=== PATIENT | male | born 1980 | race Caucasian/White ===

== ENCOUNTER 2021-03-24 11:41 | Emergency (ER) | payer OTHER ==
[2021-03-24] MEDS ORDERED: BACTRIM DS TAB1 EACH PO (12:42)
[2021-03-24] MEDS ORDERED: BACTROBAN OINT22 GM EXT (12:42)
[2021-03-24] MEDS ORDERED: CEPHALEXIN500 M1 PO (12:42)
== END 2021-03-24 13:16 | disposition home or self-care (01) ==
LOC: ER1 11:41
DX: S70.362A Insect bite (nonvenomous), left thigh, initial encounter (principal); S70.361A Insect bite (nonvenomous), right thigh, initial encounter; L03.115 Cellulitis of right lower limb; L03.116 Cellulitis of left lower limb; W57.XXXA Bitten or stung by nonvenomous insect and other nonvenomous arthropods, initial encounter; Y93.9 Activity, unspecified; F17.210 Nicotine dependence, cigarettes, uncomplicated
CPT/HCPCS: 99283